=== PATIENT | female | born 1975 | race African-American/Black ===

== ENCOUNTER 2023-01-31 14:18 | Emergency (ER) | payer SELFPAY | END 2023-01-31 14:53 | disposition home or self-care (01) | LOC: NAV ERS 14:18 | DX: L01.00 Impetigo, unspecified (principal) | CPT/HCPCS: 99282 ==

== ENCOUNTER 2024-06-24 17:05 | Emergency (ER) | payer SELFPAY ==
[2024-06-24] MEDS ORDERED: Dexamethasone 4 mg/ml Vial ONE (17:27)
[2024-06-24 18:47] LABS: #Basophils 0.1 thou/uL (0.0-0.2); #Lymphocytes 1.2 thou/uL (1.20-3.40); #Monocytes 0.5 thou/uL (0.11-0.59); #Neutrophils 4.2 thou/uL (1.40-6.50); %Basophils 0.7 % (0.0-1.0); %Eosinophils 13.7 % (0.0-10.0); %Lymphocytes 16.9 % (21.0-51.0); %Monocytes 7.8 % (0.0-10.0); %Neutrophils 60.8 % (42.0-75.0); Critical Call w/ Read Back NUR.AK2@1845; Hematocrit 22.8 % (36.0-47.0); Hemoglobin 5.9 g/dL (12.0-16.0); Mean Corpuscular Hemoglobin 14.1 pg (27.0-31.0); Mean Corpuscular Volume 54.4 fl (78.0-98.0); Mean Platelet Volume 7.1 fL (7.4-10.4); Platelet Count 239 10x3/uL (130-400); RBC Distribution Width 16.6 % (11.5-14.5); Red Blood Cell (RBC) Count 4.19 mill/uL (4.20-5.40)
[2024-06-24 18:49] LABS: ALT (SGPT) 14 U/L (8-55); AST (SGOT) 20 U/L (5-34); Albumin 3.7 g/dL (3.5-5.0); Alkaline Phosphatase 85 U/L (40-110); Anion Gap 13 mmol/L (10-20); BUN (Urea Nitrogen) 10 mg/dL (7.0-18.7); Bilirubin, Total 1.4 mg/dL (0.2-1.2); Calc. Creatinine Clearance 0 mL/min (70-130); Carbon Dioxide 24 mmol/L (22-29); Chloride 104 mmol/L (98-107); Estimated GFR 99; Globulin 4.6 g/dL (2.4-3.5); Glucose 104 mg/dL (70-105); Potassium 3.4 mmol/L (3.5-5.1); Protein, Total 8.3 g/dL (6.0-8.3); Sodium 138 mmol/L (136-145)
[2024-06-24 20:52] LABS: Anisocytosis SLIGHT = 6-15 cells (100X) (0-5/hpf); Elliptocytes SLIGHT = 2-5 cells (100X) (0-1/hpf); Hypochromia MODERATE=16-30 cells (100X) (0-5/hpf); Ovalocytes SLIGHT = 2-5 cells (100X) (0-1/hpf); Poikilocytosis SLIGHT = 6-15 cells (100X) (0-5/hpf); Tear Drops SLIGHT = 2-5 cells (100X) (0-1/hpf)
[2024-06-24 20:53] LABS: Platelet Adequacy Comment Appears Adequate
[2024-06-24] MEDS ORDERED: Sodium Chloride 0.9% 250 ML 250 ML ONE (22:17)
[2024-06-25 02:52] LABS: Hematocrit 25.3 % (36.0-47.0); Hemoglobin 6.8 g/dL (12.0-16.0)
== END 2024-06-25 03:50 | disposition home or self-care (01) ==
LOC: NAV ERS 17:05
DX: L25.9 Unspecified contact dermatitis, unspecified cause (principal); D64.9 Anemia, unspecified
CPT/HCPCS: 36415; 36430; 80053; 85014; 85018; 85025; 85060; 86850; 86900; 86901; 96372; 99283; J1100; J7050; P9016

== ENCOUNTER 2025-04-10 16:43 | Emergency (ER) | payer BC ==
[2025-04-10] MEDS ORDERED: Clindamycin 150 MG CAP ONE (17:11)
[2025-04-10] MEDS ORDERED: Ibuprofen 800 MG TAB ONE (17:11)
== END 2025-04-10 17:17 | disposition home or self-care (01) ==
LOC: NAV ERS 16:43
DX: K08.89 Other specified disorders of teeth and supporting structures (principal); K02.9 Dental caries, unspecified; E66.9 Obesity, unspecified
CPT/HCPCS: 99282